=== PATIENT | male | born 1960 | race Caucasian/White ===

== ENCOUNTER 2022-02-26 07:01 | Day surgery (SDC) | payer OTHER ==
[2022-02-26] MEDS ORDERED: Midazolam 1 MG/ML 2 ML SDV ONE (07:18)
[2022-02-26] MEDS ORDERED: fentaNYL 50 MCG/ML SDV ONE (07:18)
[2022-02-26] MEDS ORDERED: Propofol 200 MG/20 ML SDV ONE ×2 (07:18→08:24)
[2022-02-26] MEDS ORDERED: Lactated Ringers 1,000 ML IV SCH (07:30)
== END 2022-02-26 09:31 | disposition home or self-care (01) ==
LOC: JP.SDS 07:01
PROVIDERS: ATTEND Student in an Organized Health Care Education/Training Program
DX: Z12.11 Encounter for screening for malignant neoplasm of colon (principal); K63.5 Polyp of colon; K57.30 Diverticulosis of large intestine without perforation or abscess without bleeding; K21.9 Gastro-esophageal reflux disease without esophagitis; Z79.899 Other long term (current) drug therapy
CPT/HCPCS: 88305; J2250; J2704; J3010; J7120